=== PATIENT | female | born 1955 | race Caucasian/White ===

== ENCOUNTER 2016-07-13 10:47 | Emergency (ER) | payer MEDICAID, MEDICARE ==
[2016-07-13 11:02] VITALS: TEMP 98.6; BMI 22.1
[2016-07-13] MEDS ORDERED: SODIUM CHLORIDE 0.9% 10 ML FLUSH FLUSH PRN (11:14)
[2016-07-13] MEDS ORDERED: ONDANSETRON HCL 4 MG/2 ML VIAL IV ONE (11:14)
[2016-07-13] MEDS ORDERED: MORPHINE 4 MG/ML INJECTION IV ONE (11:14)
--- NOTE | 2016-07-13 11:19 | EDPRACDOC ---
- General Information Chief Complaint: Wound Stated Complaint: WOUND CHECK Time Seen by Provider: 07/13/16 11:06 Information Source: Patient Mode Of Arrival: Car Home Medications: Home Medications Acetaminophen [Mapap] 1,000 mg PO Q8H PRN 07/13/16 Aspirin (Enteric Coated) [Ecotrin] 81 mg PO DAILY 07/13/16 Docusate Sodium [Colace] 100 mg PO DAILY PRN 07/13/16 Levothyroxine [Synthroid, Levoxyl] 125 mcg PO DAILY 07/13/16 Ondansetron HCl [Zofran] 4 mg PO Q8H PRN #20 tab 07/13/16 Sulfamethoxazole/Trimethoprim [Bactrim Ds Tablet] 1 tab PO BID #14 tab 07/13/16 Tramadol HCl [Ultram] 50 mg PO Q6H PRN #15 tab 07/13/16 Allergies/Adverse Reactions: Allergies Allergy/AdvReac Type Severity Reaction Status Date / Time fentanyl Allergy See Verified 07/13/16 11:34 Comments hydromorphone [From Dilaudid] Allergy See Verified 07/13/16 11:34 Comments morphine Allergy See Verified 07/13/16 11:34 Comments phenytoin [From Dilantin] Allergy See Verified 07/13/16 11:34 Comments pneumococcal vaccine Allergy Hives* Verified 07/13/16 11:34 - History of Present Illness Onset: 06/26/16 Wound Location: L upper chest Wound Type: Other (removal of infected port-a cath) Wound Discharge: Purulent Previously Treated In: Surgery Current Wound Treatment: Packed, Antibiotics Last Tetanus: Yes Associated Signs and Symptoms: Pain, Swelling, Local Redness Other History: Pt states on 06/26/16 she had infected port-a-cath removed at [facility]. Pt released on 07/01/16 and has been treating wound at home, currently on Augmentin. C/o increased drainage, swelling, pain from site radiating to L axilla, nausea. Denies fever, cp, sob, abd pain, red streaking. Pt hx lung cancer. ED Past Medical History - History Reviewed Yes Nurses notes reviewed and agree except as marked - Patient Medical History Cardiac History: Reports: Hypercholesterolemia Respiratory History: Reports: COPD Musculoskeletal History: Reports: Arthritis (degenerative) Psychological History: Reports: Anxiety Systemic History: Reports: Cancer, Hypothyroidism Surgical History: Reports: Cholecystectomy. Denies: Hysterectomy EDM Review of Systems - Review of Systems Constitutional: No Symptoms Reported. negative: Fever, Chills, Weakness, Fatigue, Loss of Appetite Ears: No Symptoms Reported. negative: Pain, Hearing Loss, Drainage, Ear Pulling Throat: No Symptoms Reported. negative: Pain, Swelling Nose: No Symptoms Reported. negative: Congestion, Bleeding, Discharge, Injection, Swelling, Deformity, Ecchymosis, Tender, Abrasion, Laceration Mouth: No Symptoms Reported. negative: Pain, Drooling Respiratory: No Symptoms Reported. negative: Cough, Brassy Cough, Barky Cough, Shortness of Breath, Wheezing, Hemoptysis Cardiovascular: No Symptoms Reported. negative: Chest Pain, Palpitations, Syncope, Edema, Orthopnea, PND, Skin Mottling, Cyanosis Gastrointestinal: Nausea Genitourinary: No Symptoms Reported. negative: Dysuria, Hematuria, Frequency, Discharge, Bleeding, Testicular Pain, Neurological: No Symptoms Reported. negative: Headache, Dizziness, Seizure, Numbness, Weakness, Speech Difficulty, Gait Difficulty Musculoskeletal: Chestwall Integumentary: Wound Allergic/Immunologic: No Symptoms Reported. negative: Hives, Itching Hematologic: No Symptoms Reported. negative: Lymphadenopathy, Easy Bruising, Easy Bleeding Psychiatric: No Symptoms Reported. negative: Anxiety, Depression, Hallucinations, Insomnia, Suicidal - Physical Exam Constitutional: Alert Oriented to: Time, Person, Place Last recorded Vital Signs: Last Vital Signs Temp 98.6 F 07/13/16 10:56 Pulse 83 07/13/16 10:56 Resp 20 07/13/16 10:56 BP 145/66 07/13/16 10:56 Pulse Ox 98 07/13/16 10:56 Oxygen Pulse Oxygen Saturation 98 O2 Device Room Air Oxygen Flow Rate Fraction of Inspired Oxygen ( FIO2) - HEENT Head: Normal ( normocephalic) Eye Exam: Normal (PERRL, EOMI, Sclera white) Neck: Normal (FROM, trachea at midline) - Respiratory/Cardiovascular Respiratory: Normal - CTA (BBS clear to auscultation without adventitious sounds ) Cardiovascular: Normal (RRR without murmur, gallop or rub) - Musculoskeletal Back: Normal (Non-Tender) Extremities: Normal (Normal tone, Pulses 2+ No cyanosis or edema, FROM) - Integumentary Skin: Normal, Warm, Dry Lymphatics: Normal (no adenopathy) - Neurologic Memory Impaired: Normal Motor Function: Normal (Normal tone, Pulses 2+ No cyanosis or edema, FROM) Mood Description: Normal ED Wound Check Exam - Wound Detail Wound Location: L upper chest Healing: Warm, Tenderness, Other (large open wound) Discharge: Purulent Erythema: Surrounding Tissue - Differential Diagnosis Abscess, Cellulitis - Results 07/13/16 11:25 07/13/16 11:25 - Additional Information Discussed pt with nissa Lacy to d/c home Visit reviewed from [facility], [place] and negative tip and blood cultures Decision Time to Discharge: 12:47 - Departure Disposition: Home Condition: Stable Final Diagnosis: Cellulitis of chest wall Instructions: Cellulitis (ED), Acute Wound Care (ED) Education/Counseling Given To: Patient Education/Counseling Given Regarding: Diagnosis, Treatment, Follow Up Referrals: Janina Costa NP [Primary Care Provider] - One Week Alvaro Diaz MD [Staff Physician] - One Week Prescriptions: New Ondansetron HCl [Zofran] 4 mg PO Q8H PRN #20 tab PRN Reason: Nausea/Vomiting Sulfamethoxazole/Trimethoprim [Bactrim Ds Tablet] 1 tab PO BID #14 tab Tramadol HCl [Ultram] 50 mg PO Q6H PRN #15 tab PRN Reason: Pain No Action Levothyroxine [Synthroid, Levoxyl] 125 mcg PO DAILY Aspirin (Enteric Coated) [Ecotrin] 81 mg PO DAILY Acetaminophen [Mapap] 1,000 mg PO Q8H PRN PRN Reason: Pain Docusate Sodium [Colace] 100 mg PO DAILY PRN PRN Reason: Constipation Additional Instructions: Follow up with Personal MD at [facility], [place] in 1-2 days. Wound clinic will contact you for appointment time. Continue Augmentin as previously directed.
[2016-07-13] MEDS ORDERED: KETOROLAC TROMETH 30 MG/ML VIAL IV ONE (11:39)
[2016-07-13 11:43] LABS: AUTOMATED BASOPHIL 1.9 % (0-2); AUTOMATED EOSINOPHIL 2.2 % (0-5); AUTOMATED LYMPH 37.9 % (17-44); AUTOMATED MONOCYTE 5.7 % (3-10); AUTOMATED NEUTROPHIL 52.3 % (45-76); MPV 6.6 fL (7.4-10.4)
[2016-07-13 11:51] LABS: BLOOD UREA NITROGEN 11 MG/DL (7-17); CALCULATED OSMOLALITY 270 MOs/Kg (270-290); CHLORIDE 103 mEq/L (98-107); GLUCOSE 97 MG/DL (70-99); SODIUM LEVEL 141 mEq/L (137-146); TOTAL PROTEIN 8.7 G/DL (6.3-8.2)
[2016-07-13 13:30] VITALS: BP 133/60; PULSE 82
== END 2016-07-13 13:18 | disposition home or self-care (01) ==
LOC: ED 10:47
DX: L03.313 Cellulitis of chest wall (principal)
CPT/HCPCS: 36415; 80053; 83605; 85025; 87040; 96374; 96375; 99283; J1885; J2405; J2270